=== PATIENT | male | born 2000 | race African-American/Black ===

== ENCOUNTER 2021-08-31 07:23 | Emergency (ER) | payer SELFPAY ==
[2021-08-31] MEDS ORDERED: Dexamethasone 10 MG/ML VIAL ONE (08:33)
[2021-08-31] MEDS ORDERED: cefTRIAXone\\ROCEPHIN 1 GM VIAL ONE (08:33)
[2021-08-31] MEDS ORDERED: Ketorolac Tromethamine 30 MG/ML VIAL ONE (08:33)
== END 2021-08-31 09:30 | disposition home or self-care (01) ==
LOC: CSHERS 07:23
DX: J02.9 Acute pharyngitis, unspecified (principal)
CPT/HCPCS: 96365; 96375; J0696; J1100; J1885